=== PATIENT | female | born 1980 | race African-American/Black ===

== ENCOUNTER 2016-09-03 00:23 | Emergency (ER) | payer BC ==
[~2016-09-03] VITALS: Ht 154.9 cm; Wt 76.0 kg
[2016-09-03] MEDS ORDERED: IBUPROFEN 600MG TABLET PO ONE (06:45)
[2016-09-03] MEDS ORDERED: ACETAMINOPHEN 500MG TABLET PO ONE (06:45)
[2016-09-03 07:38] VITALS: BP 118/77
== END 2016-09-03 07:52 | disposition home or self-care (01) ==
LOC: ER 05:26
DX: G44.209 Tension-type headache, unspecified, not intractable (principal); M54.5 Low back pain; Z88.0 Allergy status to penicillin
CPT/HCPCS: 81025; 99283